=== PATIENT | female | born 1970 | race Caucasian/White ===

== ENCOUNTER → 2020-02-05 | Outpatient (CLI) | payer BC ==
[2020-02-05 09:19] LABS: Basophils # (A) 0.1 k/uL (0-0.2); Basophils % (A) 1 %; Eosinophils # (A) 0.2 k/uL (0-0.7); Eosinophils % (A) 2 %; HCT 47.2 % (34.0-46.0); HGB 15.6 gm/dL (11.4-16.0); Lymphocytes # (A) 2.6 k/uL (1.0-4.8); Lymphocytes % (A) 25 %; MCH 33.2 pg (25.0-35.0); MCV 100.6 fL (80.0-100.0); Mean Platelet Volume 7.3; Monocytes # (A) 0.6 k/uL (0-1.0); Monocytes % (A) 6 %; Neutrophils # (A) 6.6 k/uL (1.3-7.7); Neutrophils % (A) 64 %; Platelet Count 231 k/uL (150-450); RBC 4.69 m/uL (3.80-5.40); RDW 11.8 % (11.5-15.5); WBC 10.2 k/uL (3.8-10.6)
== END | disposition home or self-care (01) ==
LOC: LABPAT 07:30 → MERGE 07:30
PROVIDERS: ATTEND Obstetrics & Gynecology
DX: Z01.818 Encounter for other preprocedural examination (principal); N93.8 Other specified abnormal uterine and vaginal bleeding; N84.0 Polyp of corpus uteri
CPT/HCPCS: 36415; 85025

== ENCOUNTER 2020-02-13 08:39 | Day surgery (SDC) | payer BC ==
[2020-02-12 08:52] VITALS: BMI 21.8
[~2020-02-13 08:39] MED LIST: DEXAMETHASONE SOD PHOSPHATE 10 MG/ML 1 ML VIAL IV ONE; HYDROmorphone 0.5 MG/0.5 ML SYRINGE IVP PRN; LIDOCAINE 1% (10MG/ML) FOR IV START INTRADERMA PRN; MIDAZOLAM 2 MG/2 ML VIAL IV PRN; ONDANSETRON 4 MG/2 ML VIAL IVP ONE; Pre Op ABX Message 1 EACH MISC MISCELLANE ONE
[2020-02-13] MEDS: LACTATED RINGERS 1,000 ML IV SCH ×2 (09:13→10:00)
[2020-02-13] MEDS ORDERED: MIDAZOLAM 2 MG/2 ML VIAL ONE (09:56)
[2020-02-13] MEDS ORDERED: PROPOFOL 10 MG/ML 20 ML VIAL IV ONE (09:56)
[2020-02-13] MEDS ORDERED: fentaNYL (PF) 50 MCG/ML 2 ML AMP ONE (09:56)
[2020-02-13] MEDS ORDERED: LIDOCAINE 1% INJ 10MG/ML (20 ML MDV) ONE (09:56)
[2020-02-13] MEDS ORDERED: LIDOCAINE 1%-EPI 1:100,000 20 ML VIAL SUBMUCOSAL ONE ×2 (10:17→10:20)
[2020-02-13 10:43] VITALS: TEMP 97.8
--- NOTE | 2020-02-13 10:47 | P.OP ---
Date of Procedure: 02/13/20 Preoperative Diagnosis: Dysfunctional uterine bleeding Endometrial polyps Suprapubic pain Postoperative Diagnosis: Same Procedure(s) Performed: Diagnostic hysteroscopy, D&C and polypectomy, collection of urine for culture and sensitivity Anesthesia: MAC Surgeon: Deirdre Murillo Estimated Blood Loss (ml): 5 IV fluids (ml): 400 Urine output (ml): 25 Pathology: other (Endometrial curettings and urine specimen) Condition: stable Disposition: PACU Indications for Procedure: Social uterine bleeding with findings of thickened endometrium and endometrial polyps on ultrasound. In preop today, Patient complains of ongoing intermittent suprapubic pain over the last 1 month and has previously been treated for urinary tract infection. Operative Findings: Fluffy endometrium with intracavitary lesions consistent with endometrial polyps emanating from the left lateral sidewall and right posterior wall. Description of Procedure: After the patient and her were met in the preoperative holding area and all questions were answered, she was taken to the operating room where appropriate timeout procedure was undertaken. Anesthetic was then administered. Patient was positioned, prepped and draped in the dorsal lithotomy position. Straight catheter urine specimen was obtained and the bladder was drained. Exam under anesthetic was performed and uterus feels small, freely mobile and in the midline. No palpable pelvic masses appreciated. Single-sided speculum was placed in the vagina and the cervix was grasped anteriorly with a single-tooth tenaculum. The uterus was sounded to 7 cm. The cervix was sequentially dilated to allow for passage of the diagnostic hysteroscope. The hysteroscope was introduced and the above findings were noted. Hysteroscope was removed and the cervix was further dilated to allow for passage of the medium sharp banjo curet. The uterine cavity was circumferentially curettaged with a large amount of specimen including tissue consistent with polyps. Curettage was continued until rough texture of the endometrium was appreciated circumferentially and minimal tissue was obtained. The cervix was then observed and no active bleeding was noted. Paracervical block with lidocaine plus epinephrine was placed prior to cessation of the procedure. Instruments were then removed from the cervix and vagina. The patient was awoken from anesthetic and transported recovery area without incident. All counts reported to me as correct by the operating room staff.
[2020-02-13] MEDS ORDERED: KETOROLAC 15 MG/ML 1 ML VIAL IVP ONE (11:03)
[2020-02-13 11:42] VITALS: BP 125/79; PULSE 63; RESP 18
== END 2020-02-13 12:07 | disposition home or self-care (01) ==
LOC: OR 08:39 → MERGE 10:45 → OR 12:07
PROVIDERS: ATTEND Obstetrics & Gynecology
DX: C54.1 Malignant neoplasm of endometrium (principal); N84.0 Polyp of corpus uteri; J45.909 Unspecified asthma, uncomplicated; F17.210 Nicotine dependence, cigarettes, uncomplicated; Z87.440 Personal history of urinary (tract) infections; Z82.49 Family history of ischemic heart disease and other diseases of the circulatory system; Z80.0 Family history of malignant neoplasm of digestive organs; Z84.2 Family history of other diseases of the genitourinary system; Z79.1 Long term (current) use of non-steroidal anti-inflammatories (NSAID); Z79.3 Long term (current) use of hormonal contraceptives; Z79.899 Other long term (current) drug therapy
CPT/HCPCS: 81025; 88305; 87086; 58558; J2250; J1100; J2405; J2001; J3010; J1885; J2704

== ENCOUNTER → 2020-03-04 | Outpatient (CLI) | payer BC ==
--- NOTE | 2020-03-05 09:28 | MM ---
Reason for exam: screening (asymptomatic). Last mammogram was performed 3 years and 6 months ago. History: Patient is postmenopausal and has history of other cancer at age 49. Physical Findings: A clinical breast exam by your physician is recommended on an annual basis and results should be correlated with mammographic findings. MG 3D Screening Mammo W/Cad Bilateral CC and MLO view(s) were taken. Prior study comparison: September 10, 2016, mammogram, performed at [facility]. August 08, 2015, mammogram, performed at [facility]. The breast tissue is heterogeneously dense. This may lower the sensitivity of mammography. There is no discrete abnormality. No significant changes when compared with prior studies. ASSESSMENT: Negative, BI-RAD 1 RECOMMENDATION: Routine screening mammogram of both breasts in 1 year.
== END | disposition home or self-care (01) ==
LOC: RADMAMWWP 06:58 → MERGE 07:00
PROVIDERS: ATTEND Obstetrics & Gynecology
DX: Z12.31 Encounter for screening mammogram for malignant neoplasm of breast (principal)
CPT/HCPCS: 77063; 77067

== ENCOUNTER → 2020-03-15 | Outpatient (CLI) | payer BC ==
--- NOTE | 2020-03-15 10:13 | XR ---
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 FINDINGS: There is no focal air space opacity, pleural effusion, or pneumothorax seen. The cardiac silhouette size is within normal limits. Prominent lung volume may be indicative of underlying COPD. Degenerative disc changes are noted in the thoracic spine. The osseous structures are intact. IMPRESSION: No acute cardiopulmonary process.
--- NOTE | 2020-03-15 11:13 | CT ---
EXAMINATION TYPE: CT abdomen pelvis w con DATE OF EXAM: 03/15/2020 COMPARISON: None HISTORY: Malignant neoplasm of endometrium CT DLP: 483.9 mGycm CONTRAST: CT scan of the abdomen and pelvis is performed with Oral Contrast and with IV Contrast, patient injec ana with 100 mL of Isovue 300. FINDINGS: LUNG BASES-: No visible nodule. No infiltrate. LIVER/GB: Cholesterol gallstone noted within the gallbladder lumen. No space occupying hepatic lesion . Biliary tree is of normal caliber. PANCREAS: No inflammation. No distinct mass. SPLEEN: No splenic enlargement. No lesion seen. ADRENALS: No nodule. No thickening. KIDNEYS/BLADDER: No hydronephrosis. No nephrolithiasis. No distinct renal mass. Urinary bladder g rossly unremarkable. BOWEL: Normal appendix. Normal bowel caliber. No inflammation. GENITAL ORGANS: Heterogeneity of the uterus. Uterine size is within normal limits. No adnexal mass s een. No evidence for free fluid. LYMPH NODES: No greater than 1cm abdominal or pelvic lymph nodes are appreciated. AORTA: No significant abnormality. OSSEOUS STRUCTURES: No significant abnormality is seen. OTHER: No significant additional abnormality is seen. IMPRESSION: 1. No evidence for metastatic disease. Nonspecific heterogeneity of the uterus. 2. Cholesterol gallstone.
== END | disposition home or self-care (01) ==
LOC: RADCTMAIN 07:57
PROVIDERS: ATTEND Obstetrics & Gynecology
DX: K80.20 Calculus of gallbladder without cholecystitis without obstruction (principal); C54.1 Malignant neoplasm of endometrium; F17.210 Nicotine dependence, cigarettes, uncomplicated
CPT/HCPCS: 71046; 74177; Q9967

== ENCOUNTER → 2021-10-13 | Outpatient (CLI) | payer OTHER ==
--- NOTE | 2021-10-14 06:01 | MR ---
EXAMINATION TYPE: MR pelvis wo/w con DATE OF EXAM: 10/13/2021 COMPARISON: None HISTORY: Pelvic pain, hx uterine cancer. CONTRAST: Standard multiplanar, multisequence MRI departmental protocol images were obtained without contrast a nd with 8 mL intravenous Gadavist gadolinium contrast. There is hysterectomy. The bladder distends smoothly. No evidence of bladder mass. No free fluid in t he pelvis. No sign of pelvic lymphadenopathy. No evidence of inguinal hernia. The vagina and rectum a ppear intact. No evidence of a pelvic mass. Contrast images show no pathologic enhancement. The bony structures visualized appear intact. Sacrum and coccyx segments have normal alignment. No pr esacral edema. IMPRESSION: Negative MR scan of the pelvis. No evidence of recurrent tumor. Hysterectomy.
== END | disposition home or self-care (01) ==
LOC: RADMRIMAIN 14:41
PROVIDERS: ATTEND Radiology Radiation Oncology
DX: R10.2 Pelvic and perineal pain (principal); Z90.710 Acquired absence of both cervix and uterus
CPT/HCPCS: 72197; A9585

== ENCOUNTER → 2022-01-05 | Outpatient (CLI) | payer OTHER ==
--- NOTE | 2022-01-09 18:26 | MM ---
Reason for Exam: Screening (asymptomatic). Last mammogram was performed 1 year(s) and 10 month(s) ago. Patient History: Menarche at age 10. First Full-Term at age 18. Left ovary removed at age 49. Right ovary removed at age 49. Hysterectomy at age 49. Postmenopausal. Other cancer, age 49. Risk Values: Amina 5 year model risk: 1.0%. NCI Lifetime model risk: 7.7%. Prior Study Comparison: 08/08/2015 Screening Mammogram, [facility]. 09/10/2016 Screening Mammogram, [facility]. 03/04/2020 Bilateral Screening Mammogram, [facility]. Tissue Density: The breast tissue is heterogeneously dense. This may lower the sensitivity of mammography. Findings: Analyzed By CAD. There is no suspicious group of microcalcifications or new suspicious mass in either breast. Overall Assessment: Negative, BI-RAD 1 Management: Screening Mammogram of both breasts in 1 year. A clinical breast exam by your physician is recommended on an annual basis and results should be correlated with mammographic findings. Electronically signed and approved by: Russ Jamil DO
== END | disposition home or self-care (01) ==
LOC: RADMAMWWP 14:54
PROVIDERS: ATTEND Obstetrics & Gynecology
DX: Z12.31 Encounter for screening mammogram for malignant neoplasm of breast (principal); Z78.0 Asymptomatic menopausal state; Z85.89 Personal history of malignant neoplasm of other organs and systems
CPT/HCPCS: 77063; 77067

== ENCOUNTER → 2023-04-12 | Outpatient (CLI) | payer OTHER ==
--- NOTE | 2023-04-17 08:55 | CT ---
EXAMINATION TYPE: CT ChestAbdPelvis w con CT DLP: 843.4 mGycm, Automated exposure control for dose reduction was used. DATE OF EXAM: 04/12/2023 1:53 PM COMPARISON: CT abdomen pelvis [id number], MR pelvis 10/21/2021 CLINICAL INDICATION:Female, 52 years old with history of C54.1 MALIGNANT NEOPLASM OF ENDOMETRIUM; PHH , FOLLOW UP UTERINE CA Technique: Multiple axial images of the chest, abdomen, and pelvis were obtained. Two-dimensional cor onal and sagittal reconstructions were obtained. Contrast used:100 mL of Isovue 300 with IV Contrast, Oral contrast used: with Oral Contrast Findings: CHEST: LUNGS/ PLEURA: Mild centrilobular emphysema changes in the upper lobes. Mild biapical scarring. A 7 mm nodular density on the right along the minor fissure image 36 series 4, could be fissural lymph no de. A few tiny 2 to 3 mm nodular densities are seen in the posterior aspect of the right lower lobe n o masses are highly concerning nodules are seen. Small area of subpleural scarring in the anterior-in ferior right upper lobe. No focal airspace consolidation, sizable pleural effusion, or pneumothorax d emonstrated. AIRWAY: Patent and unremarkable. HEART: Heart size upper normal. No pericardial effusion.. MEDIASTINUM: No gross evidence of adenopathy. VASCULATURE: Ascending aorta mildly ectatic at 3.3 cm. Mild calcification along the arch and proxima l branch vessels. No dissection. Aberrant origin of the right subclavian artery noted, arising as the last branch off the aortic arch before taking a retroesophageal course. Pulmonary trunk is normal in size at 2.4 cm. Grossly normal enhancement of the pulmonary arteries in the limits of the exam. MUSCULOSKELETAL: Mild disc degeneration changes are present throughout the thoracolumbar spine. No de structive lesions. SOFT TISSUES/LYMPH NODES: Unremarkable. LOWER NECK: No significant findings. ABDOMEN: ABDOMEN LIVER: Unremarkable GALLBLADDER AND BILE DUCTS: No biliary dilatation. There are mixed density gallstones present with hy poattenuating centers and thin peripheral rim of calcification. No biliary dilatation or gallbladder distention. PANCREAS: Unremarkable. SPLEEN: Unremarkable. ADRENAL GLANDS: Unremarkable. KIDNEYS AND URETERS: Kidneys enhance symmetrically. No evidence of mass or hydronephrosis. PELVIS BLADDER: Unremarkable REPRODUCTIVE: Post hysterectomy. Ovaries are also likely absent. No evidence of recurrent pelvic mass . ABDOMEN & PELVIS STOMACH AND BOWEL: Contrast traverses the bowel loops without evidence of obstruction. Moderate stool mixed with gas throughout the colon without focal abnormality shown. Appendix appears within normal limits. PERITONEUM: No evidence of pneumoperitoneum or free fluid. No appreciable intraperitoneal implants. VASCULATURE: Moderate mixed atherosclerotic disease of the aorta and branches. There are 2 right and single left renal arteries. Celiac, SMA, renal arteries appear patent proximally. No AAA. There is di ffuse disease throughout the iliac arteries with moderate stenosis of the right greater than left ext ernal iliac arteries. MUSCULOSKELETAL: No acute osseous abnormalities. Mild disc degeneration changes are present throughou t the thoracolumbar spine. No destructive lesion. LYMPH NODES: No gross evidence for lymphadenopathy. SOFT TISSUE/ABDOMINAL WALL: Tiny fat-containing umbilical hernia. IMPRESSION: 1. No evidence of metastatic disease to the chest, abdomen, or pelvis. 2. Status post hysterectomy without evidence of recurrent pelvic mass.
== END | disposition home or self-care (01) ==
LOC: RADCTMAIN 11:53
PROVIDERS: ATTEND Obstetrics & Gynecology
DX: C54.1 Malignant neoplasm of endometrium (principal); Z85.42 Personal history of malignant neoplasm of other parts of uterus
CPT/HCPCS: 71260; 74177; Q9967

== ENCOUNTER → 2023-12-23 | Outpatient (CLI) | payer OTHER ==
--- NOTE | 2023-12-23 09:13 | CT ---
EXAMINATION TYPE: CT ChestAbdPelvis w con CT DLP: 1686 mGycm, Automated exposure control for dose reduction was used. DATE OF EXAM: 12/23/2023 9:02 AM COMPARISON: 04/12/2023 CLINICAL INDICATION: Female, 53 years old with history of C54.1 endometrial ca; PHH, ovarian CA Technique: CT ChestAbdPelvis w con; Multiple axial images were obtained. Two-dimensional coronal and sagittal reconstructions were obtained. Contrast used:100 mL of Isovue 300 with IV Contrast, Oral contrast used: with Oral Contrast Findings: CHEST: LUNGS/ PLEURA: No focal consolidation, pneumothorax or pleural effusion. Mild centrilobular emphysema changes throughout the lungs. No new or enlarging pulmonary nodules. AIRWAY: Patent and unremarkable. HEART: Size within normal limits. MEDIASTINUM: No gross evidence of adenopathy. VASCULATURE: No aortic aneurysm. 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 MUSCULOSKELETAL: No acute osseous abnormalities. SOFT TISSUES/LYMPH NODES: Unremarkable. LOWER NECK: No significant findings. ABDOMEN: ABDOMEN LIVER: Unremarkable GALLBLADDER AND BILE DUCTS: Unremarkable. PANCREAS: Unremarkable. SPLEEN: Unremarkable. ADRENAL GLANDS: Unremarkable. KIDNEYS AND URETERS: No evidence of hydronephrosis or renal calculus. The ureters are unremarkable. PELVIS BLADDER: Unremarkable REPRODUCTIVE: Surgically absent uterus. Ovaries are also not visualized and possibly surgically absen t. ABDOMEN & PELVIS STOMACH AND BOWEL: No evidence of bowel obstruction. PERITONEUM: No evidence of pneumoperitoneum or free fluid. VASCULATURE: Mild atherosclerotic calcifications are present throughout the abdominal aorta and its b ranches. MUSCULOSKELETAL: No acute osseous abnormalities. Mild disc degeneration changes are present throughou t the thoracolumbar spine. LYMPH NODES: No gross evidence for lymphadenopathy. SOFT TISSUE/ABDOMINAL WALL: Fat-containing umbilical hernia. IMPRESSION: No evidence for lymphadenopathy or mass. No suspicious lesions.
== END | disposition home or self-care (01) ==
LOC: RADCTMAIN 07:26
PROVIDERS: ATTEND Obstetrics & Gynecology
DX: C54.1 Malignant neoplasm of endometrium (principal); Z85.42 Personal history of malignant neoplasm of other parts of uterus
CPT/HCPCS: 71260; 74177; Q9967